=== PATIENT | male | born 1960 | race Caucasian/White ===

== ENCOUNTER 2016-07-02 07:52 | Day surgery (SDC) | payer OTHER ==
[~2016-07-02] VITALS: Ht 188 cm; Wt 112.5 kg
[~2016-07-02 07:52] MED LIST: ADVAIR 250/501 DISK IH; ALLOPURINOL100 MG PO; AMOXICILLIN500 M1 PO; ANTIVERT25 MG PO; ASPIR 8181 M1 PO; BUSPAR15 MG PO; Buspar PO; CIPRO500 MG PO; COMBIVENT RESPIM4 GM IH; ESCITALOPRAM OX20 MG PO; Ecotrin PO; Effient PO; FLOMAX0.4 MG PO; FLONASE16 G1 BOTH NARES; GABAPENTIN300 MG PO; GABAPENTIN400 MG PO; INDOCIN25 MG PO; INDOCIN50 MG PO; KEFLEX500 MG PO; LEXAPRO20 MG PO; LISINOPRIL20 MG PO; LO-DOSE ASPIRIN81 M1 PO; LOPRESSOR50 MG PO; Lipitor PO; MECLIZINE HCL25 MG PO; METOCLOPRAM PO; METOCLOPRAMIDE10 MG PO; METOPROLOL SUCC25 MG PO; METOPROLOL TART25 MG PO; METOPROLOL TART50 MG PO; MOTRIN600 MG PO; NAPROSYN-EC500 MG PO; NEURONTIN400 MG PO; NITROSTAT0.4 MG SL; NOHOMEMEDS; OMEPRAZOLE40 M1 PO; OXYCODONE-ACET1 EACH PO; OXYCODONE5 MG PO; OXYCONTIN10 MG PO; PERCOCET 10/1 TABLET PO; PERCOCET 5/31 TABLET PO; PRAVASTATIN SOD40 MG PO; PRAVASTATIN SOD80 MG PO; PROMETHAZINE HC25 M1 PO; PROVENTIL HFA6.7 GM IH; RANITIDINE HCL150 M1 PO; ST. JOSEPH ASPI81 MG PO; TIZANIDINE HCL2 MG PO; VENTOLIN HFA18 GM IH; ZANAFLEX2 M1 PO; ZANTAC 2525 MG PO; ZANTAC300 MG PO; ZESTRIL40 MG PO; Zestril,Prinivil PO
== END 2016-07-02 10:15 | disposition home or self-care (01) ==
LOC: PAIN 07:52 → SDC 08:45 → PAIN 08:45
PROC: 3E0S33Z Introduction of Anti-inflammatory into Epidural Space, Percutaneous Approach (ICD-10-PCS; principal; 2016-07-02)
DX: M54.16 Radiculopathy, lumbar region (principal); F41.9 Anxiety disorder, unspecified; M51.26 Other intervertebral disc displacement, lumbar region; M47.816 Spondylosis without myelopathy or radiculopathy, lumbar region; M79.1 Myalgia; F17.200 Nicotine dependence, unspecified, uncomplicated; I10 Essential (primary) hypertension; I25.10 Atherosclerotic heart disease of native coronary artery without angina pectoris; J44.9 Chronic obstructive pulmonary disease, unspecified; E78.5 Hyperlipidemia, unspecified; I25.2 Old myocardial infarction; Z79.82 Long term (current) use of aspirin
CPT/HCPCS: J1100; J2250; J3010

== ENCOUNTER 2016-10-24 07:56 | Emergency (ER) | payer OTHER ==
[~2016-10-24] VITALS: Ht 188 cm; Wt 112.7 kg
[2016-10-24 08:54] LABS: BASOPHIL COUNT 0.1 K/uL (0-0.1); EOSINOPHIL COUNT 0.3 K/uL (0-0.3); HEMATOCRIT 48.3 % (38.0-50.0); IMMATURE GRANULOCYTE (%) 1.4 % (0.0-0.7); IMMATURE GRANULOCYTE COUNT 0.1 K/uL; INSTRUMENT ABS NEUTROPHIL CT 6.8 K/uL; LYMPHOCYTE COUNT 2.3 K/uL (1.0-2.8); MCH 31.9 PG (29.0-34.0); MCHC 34.4 G/DL (30.0-36.0); MCV 92.7 FL (86-99); MEAN PLAT.VOLUME 10.7 uM^3 (9.0-12.4); MONOCYTE (%) 6.8 % (3-12); MONOCYTE COUNT 0.7 K/uL (0-0.8); NEUTROPHIL (%) 65.9 % (45-76); NEUTROPHIL COUNT 6.8 K/uL (1.8-6.4); PLATELET COUNT 245 K/uL (156-360); RBC DIS.WIDTH-SD 44.2 % (39-53); RED BLOOD COUNT 5.21 M/uL (4.00-5.50); WHITE BLOOD COUNT 10.4 K/uL (4.1-10.2)
[2016-10-24 08:55] LABS: ADD MIUA? YES; BILIRUBIN NEGATIVE; BLOOD SMALL; COLOR STRAW ((YELLOW)); GLUCOSE (STRIP) NEGATIVE; KETONES NEGATIVE; LEUKOCYTES NEGATIVE; NITRITE NEGATIVE; PROTEIN (STRIP) NEGATIVE; SPECIFIC GRAVITY 1.003 (1.000-1.030); UROBILINOGEN 0.2 MG/DL (0.2-1.0)
[2016-10-24 08:57] LABS: BACTERIA RARE /HPF; EPITHELIAL CELLS NONE SEEN /HPF; MUCUS NONE SEEN /LPF; RED BLOOD CELLS 0-5 /HPF (0-5); WHITE BLOOD CELLS 0-5 /HPF (0-5)
[2016-10-24 09:02] LABS: CHLORIDE 104 mEq/L (99-109); POTASSIUM 4.3 mEq/L (3.7-5.4); SODIUM 140 mEq/L (136-147)
[2016-10-24 09:04] LABS: GLUCOSE 108 mg/dL (70-99)
[2016-10-24 09:06] LABS: ANION GAP 9 MEQ/L (2-14)
[2016-10-24 09:08] LABS: GFR ESTIMATE (CALCULATED) > 59 mL/min/
[2016-10-24 09:09] LABS: UREA NITROGEN (BUN) 14 mg/dL (9-23)
[2016-10-24 12:07] VITALS: BP 139/85
== END 2016-10-24 12:15 | disposition home or self-care (01) ==
LOC: EME 07:56
PROVIDERS: Emergency Medicine
DX: M51.26 Other intervertebral disc displacement, lumbar region (principal); I25.2 Old myocardial infarction; E78.5 Hyperlipidemia, unspecified; I10 Essential (primary) hypertension; F32.9 Major depressive disorder, single episode, unspecified; J44.9 Chronic obstructive pulmonary disease, unspecified; Z87.442 Personal history of urinary calculi; F17.200 Nicotine dependence, unspecified, uncomplicated; Z95.5 Presence of coronary angioplasty implant and graft
CPT/HCPCS: 72148; 80048; 81003; 85025; 93005; 99281; 99285; J2060; J2270

== ENCOUNTER 2017-01-21 09:34 | Observation (INO) | payer OTHER ==
[~2017-01-21] VITALS: Ht 188 cm; Wt 112.3 kg
[2017-01-21 10:49] LABS: BASOPHIL COUNT 0.1 K/uL (0-0.1); EOSINOPHIL (%) 2.8 % (0-5); EOSINOPHIL COUNT 0.2 K/uL (0-0.3); HEMATOCRIT 46.8 % (38.0-50.0); IMMATURE GRANULOCYTE (%) 1.1 % (0.0-0.7); IMMATURE GRANULOCYTE COUNT 0.1 K/uL; INSTRUMENT ABS NEUTROPHIL CT 5.6 K/uL; LYMPHOCYTE COUNT 1.9 K/uL (1.0-2.8); MCH 31.8 PG (29.0-34.0); MCHC 33.5 G/DL (30.0-36.0); MCV 94.7 FL (86-99); MEAN PLAT.VOLUME 10.4 uM^3 (9.0-12.4); MONOCYTE (%) 7.4 % (3-12); MONOCYTE COUNT 0.6 K/uL (0-0.8); NEUTROPHIL (%) 65.3 % (45-76); NEUTROPHIL COUNT 5.6 K/uL (1.8-6.4); PLATELET COUNT 198 K/uL (156-360); RBC DIS.WIDTH-CV 13.3 % (11.8-14.6); RBC DIS.WIDTH-SD 46.5 % (39-53); RED BLOOD COUNT 4.94 M/uL (4.00-5.50); WHITE BLOOD COUNT 8.5 K/uL (4.1-10.2)
[2017-01-21 10:55] LABS: PROTHROMBIN TIME 11.2 SEC (10.2-12.9)
[2017-01-21 10:58] LABS: PTT 26.7 SEC (25-37)
[2017-01-21 11:04] LABS: CHLORIDE 104 mEq/L (99-109); POTASSIUM 4.7 mEq/L (3.7-5.4); SODIUM 143 mEq/L (136-147)
[2017-01-21 11:05] LABS: GLUCOSE 120 mg/dL (70-99)
[2017-01-21 11:07] LABS: ANION GAP 11 MEQ/L (2-14)
[2017-01-21 11:09] LABS: GFR ESTIMATE (CALCULATED) > 59 mL/min/
[2017-01-21 11:10] LABS: UREA NITROGEN (BUN) 12 mg/dL (9-23)
[2017-01-21 11:11] LABS: TROP-I INTERPRETATION NEGATIVE; TROPONIN-I < 0.01 ng/mL (0.0-0.30)
[2017-01-21] MEDS ORDERED: ATORVASTATIN CA80 MG PO (13:00)
[2017-01-21] MEDS ORDERED: PRINIVIL20 MG PO (13:01)
[2017-01-21] MEDS ORDERED: GABAPENTIN400 MG PO (13:01)
[2017-01-21] MEDS ORDERED: ADVIL,NUPRIN,M200 MG PO (13:03)
[2017-01-21] MEDS ORDERED: OMEPRAZOLE40 M1 PO (13:04)
[2017-01-21 14:06] VITALS: BP 113/59
[2017-01-21 17:03] LABS: TROP-I INTERPRETATION NEGATIVE; TROPONIN-I < 0.01 ng/mL (0.0-0.30)
[2017-01-21 19:00] VITALS: BP 146/70
[2017-01-21 23:42] LABS: TROP-I INTERPRETATION NEGATIVE; TROPONIN-I 0.01 ng/mL (0.0-0.30)
[2017-01-21 23:45] VITALS: BP 118/65
[2017-01-22 03:58] VITALS: BP 123/60
[2017-01-22 08:54] VITALS: BP 125/72
== END 2017-01-22 11:15 | disposition home or self-care (01) ==
LOC: EME 09:34 → EDOF 11:44 → 5WEST 11:44 → ENRESERV 11:46 → 5WEST 13:07 → ENPENDDIS 01-22 → 5WEST 01-22 11:15
PROVIDERS: Emergency Medicine; Internal Medicine
DX: R07.9 Chest pain, unspecified (principal); I25.10 Atherosclerotic heart disease of native coronary artery without angina pectoris; Z95.5 Presence of coronary angioplasty implant and graft; I25.2 Old myocardial infarction; I10 Essential (primary) hypertension; E78.5 Hyperlipidemia, unspecified; K21.9 Gastro-esophageal reflux disease without esophagitis; J44.9 Chronic obstructive pulmonary disease, unspecified; I25.9 Chronic ischemic heart disease, unspecified; F17.200 Nicotine dependence, unspecified, uncomplicated; G89.4 Chronic pain syndrome; G62.9 Polyneuropathy, unspecified; M47.22 Other spondylosis with radiculopathy, cervical region; M54.16 Radiculopathy, lumbar region; Z79.891 Long term (current) use of opiate analgesic; K76.0 Fatty (change of) liver, not elsewhere classified; F32.9 Major depressive disorder, single episode, unspecified; Z86.010 Personal history of colon polyps; Z82.49 Family history of ischemic heart disease and other diseases of the circulatory system
CPT/HCPCS: 71010; 80048; 84484; 85025; 85610; 85730; 93005; 99202; 99281; 99285; G0378; J1650

== ENCOUNTER 2017-04-06 20:01 | Emergency (ER) | payer OTHER ==
[~2017-04-06] VITALS: Ht 188 cm; Wt 115.9 kg
[~2017-04-06 20:01] MED LIST changes: +ADVIL,NUPRIN,M200 MG PO; +ATORVASTATIN CA80 MG PO; +PRINIVIL20 MG PO
[2017-04-06] MEDS ORDERED: MEDROL DOSEPAK4 MG PO (22:25)
[2017-04-06] MEDS ORDERED: MOTRIN800 MG PO (22:25)
[2017-04-06 22:40] VITALS: BP 182/83
== END 2017-04-06 22:40 | disposition home or self-care (01) ==
LOC: EME 20:01
DX: M54.32 Sciatica, left side (principal); J44.9 Chronic obstructive pulmonary disease, unspecified; I10 Essential (primary) hypertension; E78.5 Hyperlipidemia, unspecified; F41.9 Anxiety disorder, unspecified; I25.2 Old myocardial infarction; Z95.5 Presence of coronary angioplasty implant and graft; F17.200 Nicotine dependence, unspecified, uncomplicated; Z87.442 Personal history of urinary calculi; Z86.73 Personal history of transient ischemic attack (TIA), and cerebral infarction without residual deficits; Z79.82 Long term (current) use of aspirin
CPT/HCPCS: 93971; 99281; 99283; J2930

== ENCOUNTER 2017-05-20 07:23 | Day surgery (SDC) | payer OTHER ==
[~2017-05-20] VITALS: Ht 188 cm; Wt 114.3 kg
[~2017-05-20 07:23] MED LIST changes: +DIOVAN160 MG PO; +MEDROL DOSEPAK4 MG PO; +MOTRIN800 MG PO
== END 2017-05-20 09:02 | disposition home or self-care (01) ==
LOC: PAIN 07:23 → SDC 08:00 → PAIN 09:02
DX: M47.26 Other spondylosis with radiculopathy, lumbar region (principal); M51.16 Intervertebral disc disorders with radiculopathy, lumbar region; G89.29 Other chronic pain; J44.9 Chronic obstructive pulmonary disease, unspecified; I10 Essential (primary) hypertension; I25.2 Old myocardial infarction; F17.200 Nicotine dependence, unspecified, uncomplicated; K21.9 Gastro-esophageal reflux disease without esophagitis; F41.8 Other specified anxiety disorders; M79.1 Myalgia; Z79.82 Long term (current) use of aspirin; Z79.891 Long term (current) use of opiate analgesic
CPT/HCPCS: J1100; J2250; J3010

== ENCOUNTER 2017-06-29 13:47 | Emergency (ER) | payer OTHER ==
[~2017-06-29] VITALS: Ht 188 cm; Wt 113.4 kg
[2017-06-29 13:49] VITALS: BP 154/99
[2017-06-29 14:03] LABS: HEMOGLOBIN 15.9 G/DL (12.5-16.6); MCH 31.9 PG (29.0-34.0); MCHC 34.6 G/DL (30.0-36.0); MCV 92.2 FL (86-99); PLATELET COUNT 230 K/uL (156-360); RBC DIS.WIDTH-CV 13.2 % (11.8-14.6); RBC DIS.WIDTH-SD 44.9 % (39-53); RED BLOOD COUNT 4.99 M/uL (4.00-5.50)
[2017-06-29 14:11] LABS: ALBUMIN 4.7 g/dL (3.2-4.8); CHLORIDE 101 mEq/L (99-109); POTASSIUM 4.4 mEq/L (3.7-5.4); SODIUM 138 mEq/L (136-147)
[2017-06-29 14:13] LABS: GLUCOSE 84 mg/dL (70-99)
[2017-06-29 14:14] LABS: TOTAL PROTEIN 7.5 g/dL (6.4-8.3)
[2017-06-29 14:15] LABS: TOTAL BILIRUBIN 0.5 mg/dL (0.0-1.0)
[2017-06-29 14:17] LABS: ALKALINE PHOSPHATASE 87 IU/L (3-129); CREATININE 0.8 mg/dL (0.6-1.3); GFR ESTIMATE (CALCULATED) > 59 mL/min/ (58.99-99999)
[2017-06-29 14:18] LABS: UREA NITROGEN (BUN) 20 mg/dL (9-23)
[2017-06-29 14:19] LABS: AST (GOT) 20 IU/L (2-34)
[2017-06-29 14:20] LABS: ALT (GPT) 23 IU/L (3-49)
[2017-06-29] MEDS ORDERED: AUGMENTIN XR1000 MG PO (14:44)
== END 2017-06-29 14:49 | disposition home or self-care (01) ==
LOC: EME 13:47
DX: K57.32 Diverticulitis of large intestine without perforation or abscess without bleeding (principal); E78.5 Hyperlipidemia, unspecified; I25.2 Old myocardial infarction; F17.200 Nicotine dependence, unspecified, uncomplicated; Z86.73 Personal history of transient ischemic attack (TIA), and cerebral infarction without residual deficits; Z79.82 Long term (current) use of aspirin; F41.9 Anxiety disorder, unspecified; Z87.442 Personal history of urinary calculi; Z95.5 Presence of coronary angioplasty implant and graft
CPT/HCPCS: 80053; 81003; 85027; 99281; 99283

== ENCOUNTER 2017-06-30 10:28 | Emergency (ER) | payer OTHER ==
[~2017-06-30] VITALS: Ht 188 cm; Wt 112.9 kg
[~2017-06-30 10:28] MED LIST changes: +AUGMENTIN XR1000 MG PO
[2017-06-30 10:51] LABS: BASOPHIL (%) 0.5 % (0-1); BASOPHIL COUNT 0.1 K/uL (0-0.1); EOSINOPHIL (%) 1.5 % (0-5); EOSINOPHIL COUNT 0.2 K/uL (0-0.3); HEMATOCRIT 45.7 % (38.0-50.0); HEMOGLOBIN 15.9 G/DL (12.5-16.6); LYMPHOCYTE (%) 19.4 % (15-42); LYMPHOCYTE COUNT 2.3 K/uL (1.0-2.8); MCH 31.7 PG (29.0-34.0); MCHC 34.8 G/DL (30.0-36.0); MCV 91.2 FL (86-99); MONOCYTE (%) 8.4 % (3-12); NEUTROPHIL (%) 69.2 % (45-76); NEUTROPHIL COUNT 8.2 K/uL (1.8-6.4); PLATELET COUNT 252 K/uL (156-360); RBC DIS.WIDTH-CV 13.1 % (11.8-14.6); RBC DIS.WIDTH-SD 43.8 % (39-53); RED BLOOD COUNT 5.01 M/uL (4.00-5.50); WHITE BLOOD COUNT 11.8 K/uL (4.1-10.2)
[2017-06-30 11:01] LABS: ALBUMIN 4.4 g/dL (3.2-4.8)
[2017-06-30 11:02] LABS: CHLORIDE 101 mEq/L (99-109); POTASSIUM 4.3 mEq/L (3.7-5.4); SODIUM 135 mEq/L (136-147)
[2017-06-30 11:04] LABS: GLUCOSE 121 mg/dL (70-99); TOTAL PROTEIN 7.2 g/dL (6.4-8.3)
[2017-06-30 11:06] LABS: TOTAL BILIRUBIN 0.6 mg/dL (0.0-1.0)
[2017-06-30 11:07] LABS: ALKALINE PHOSPHATASE 79 IU/L (3-129)
[2017-06-30 11:08] LABS: CREATININE 0.9 mg/dL (0.6-1.3); GFR ESTIMATE (CALCULATED) > 59 mL/min/ (58.99-99999)
[2017-06-30 11:09] LABS: AST (GOT) 18 IU/L (2-34); UREA NITROGEN (BUN) 14 mg/dL (9-23)
[2017-06-30 11:10] LABS: ALT (GPT) 21 IU/L (3-49)
[2017-06-30 13:20] VITALS: BP 125/71
== END 2017-06-30 13:28 | disposition home or self-care (01) ==
LOC: EME 10:28
PROVIDERS: Physician Assistant
DX: K57.32 Diverticulitis of large intestine without perforation or abscess without bleeding (principal); K21.9 Gastro-esophageal reflux disease without esophagitis; I10 Essential (primary) hypertension; E78.5 Hyperlipidemia, unspecified; J44.9 Chronic obstructive pulmonary disease, unspecified; I25.2 Old myocardial infarction; F32.9 Major depressive disorder, single episode, unspecified; F41.9 Anxiety disorder, unspecified; F17.200 Nicotine dependence, unspecified, uncomplicated; Z79.891 Long term (current) use of opiate analgesic; Z79.82 Long term (current) use of aspirin; Z95.5 Presence of coronary angioplasty implant and graft; Z87.442 Personal history of urinary calculi; Z86.73 Personal history of transient ischemic attack (TIA), and cerebral infarction without residual deficits
CPT/HCPCS: 74177; 80053; 85025; 99281; 99284; J7030

== ENCOUNTER 2017-10-20 08:47 | Day surgery (SDC) | payer OTHER ==
[~2017-10-20] VITALS: Ht 188 cm; Wt 112.5 kg
== END 2017-10-20 10:01 | disposition home or self-care (01) ==
LOC: PAIN 08:47 → SDC 09:15 → PAIN 10:01
DX: M51.16 Intervertebral disc disorders with radiculopathy, lumbar region (principal); M48.061 Spinal stenosis, lumbar region without neurogenic claudication; M47.816 Spondylosis without myelopathy or radiculopathy, lumbar region; M50.90 Cervical disc disorder, unspecified, unspecified cervical region; I10 Essential (primary) hypertension; J44.9 Chronic obstructive pulmonary disease, unspecified; I25.2 Old myocardial infarction; I25.10 Atherosclerotic heart disease of native coronary artery without angina pectoris; E78.5 Hyperlipidemia, unspecified; F41.8 Other specified anxiety disorders; R73.03 Prediabetes; F17.210 Nicotine dependence, cigarettes, uncomplicated; Z79.82 Long term (current) use of aspirin; Z79.891 Long term (current) use of opiate analgesic
CPT/HCPCS: J1100; J2250

== ENCOUNTER 2017-11-14 13:18 | Emergency (ER) | payer OTHER ==
[~2017-11-14] VITALS: Ht 188 cm; Wt 112.4 kg
[2017-11-14 15:03] LABS: HEMATOCRIT 47.2 % (38.0-50.0); HEMOGLOBIN 16.6 G/DL (12.5-16.6); MCH 32.6 PG (29.0-34.0); MCHC 35.2 G/DL (30.0-36.0); MCV 92.7 FL (86-99); PLATELET COUNT 227 K/uL (156-360); RBC DIS.WIDTH-CV 13.2 % (11.8-14.6); RBC DIS.WIDTH-SD 45.1 % (39-53); RED BLOOD COUNT 5.09 M/uL (4.00-5.50)
[2017-11-14 15:11] LABS: CHLORIDE 100 mEq/L (99-109); POTASSIUM 4.9 mEq/L (3.7-5.4); SODIUM 136 mEq/L (136-147)
[2017-11-14 15:12] LABS: GLUCOSE 99 mg/dL (70-99)
[2017-11-14 15:16] LABS: CREATININE 0.9 mg/dL (0.6-1.3); GFR ESTIMATE (CALCULATED) > 59 mL/min/ (58.99-99999)
[2017-11-14 15:17] LABS: UREA NITROGEN (BUN) 12 mg/dL (9-23)
[2017-11-14] MEDS ORDERED: MECLIZINE HCL25 MG PO (16:14)
[2017-11-14 16:47] VITALS: BP 169/91
== END 2017-11-14 16:48 | disposition home or self-care (01) ==
LOC: EME 13:18
PROVIDERS: Physician Assistant
DX: R42 Dizziness and giddiness (principal); F41.9 Anxiety disorder, unspecified; J44.9 Chronic obstructive pulmonary disease, unspecified; E78.5 Hyperlipidemia, unspecified; I25.2 Old myocardial infarction; Z95.5 Presence of coronary angioplasty implant and graft; F32.9 Major depressive disorder, single episode, unspecified; Z87.442 Personal history of urinary calculi; Z86.73 Personal history of transient ischemic attack (TIA), and cerebral infarction without residual deficits; Z79.82 Long term (current) use of aspirin; F17.200 Nicotine dependence, unspecified, uncomplicated
CPT/HCPCS: 70450; 80048; 85027; 93005; 99281; 99283